=== PATIENT | male | born 1970 | race Caucasian/White ===

== ENCOUNTER 2016-08-23 22:21 | Observation (INO) | payer MEDICARE, MEDICAID ==
[~2016-08-23] VITALS: Ht 180.3 cm; Wt 94.2 kg
[2016-08-23 22:30] VITALS: BP 153/95; PULSE 83; RESP 20; O2SAT 98
[2016-08-23] MEDS ORDERED: Ondansetron 2 mg/mL 2 mL Inj IVPUSH ONE (22:45)
[2016-08-23] MEDS: HYDROmorphone 0.5 mg/0.5 mL iSecure Syringe IVPUSH PRN (22:56)
--- NOTE | 2016-08-23 23:04 | ED.REPORT ---
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 He states that the pain is diffuse, though it is significantly more severe around the umbilical area. Pain is exacerbated by eating and standing, and is relieved by not eating. As a result, he has not eaten in the past three days. Associated symptoms include an episode of vomiting earlier today, chills, diaphoresis, and insomnia secondary to pain. Patient admits to some flatulence today. Recent history of similar last month that resolved after he avoided food for several days. Nursing Notes Stated Complaint: ABDOMINAL PAIN Chief Complaint: Male Abdominal Pain Nursing Notes Reviewed: Yes ([employer] not reconciled) Allergies: Coded Allergies: Penicillins (Verified Allergy, Mild, 08/23/16) General Time Seen by MD: 22:36 Chief Complaint Abdominal pain Hx Obtained From: Patient Arrived By: Walk-in Sudden in Onset?: No Onset Occurred: 3 days ago Symptom Duration: Since onset Location: : Diffuse: Periumbilical Quality: Painful, Pressure Severity: Current: Moderate Severity: Maximum: Severe Associated with: Reports: Nausea, Vomiting, Denies: Diarrhea, Fever Pertinent Negative: Pt denies other symptoms Exacerbated by: Eating, Upright Context Related History: Reports: Abdominal surgery (Umbilical hernia repair) Similar Sx Previous: Yes Past Medical History Past Surgical History Umbilical hernia repair Smoking History Current Every Day Smoker Social History Other Social History: Good social support Ambulatory Status Independent Review of Systems Constitutional: Reports: Chills, Denies: Fever Respiratory: Denies: Non-productive cough GI: Reports: Abdominal pain, Nausea, Vomiting, Denies: Constipation, Diarrhea, Hematemesis, Hematochezia Complete sys rev & neg: except as marked. Skin: Reports Diaphoresis Psychiatric: Reports: Insomnia Physical Exam Vital Signs Vital Signs (First) Date Time Temp Pulse Resp B/P Pulse Ox O2 Delivery O2 Flow Rate FiO2 08/23/16 22:30 37.1 83 20 153/95 98 Room Air Initial VS: Reviewed, Vital signs normal Head / Eyes: Atraumatic, Normocephalic Neck: Supple, Non-tender, Full range of motion Extremities: Vascular intact, Neuro intact, No swelling, No tenderness Skin: Warm, Dry, No cyanosis Neurologic: Alert, Oriented, Nonfocal Psychiatric: Mood/affect normal, Behavior normal, Normal thought content General/Constitutional: Awake, Alert, Well developed, Well nourished Appearance / Presentation: Positive: In pain, Uncomfortable Respiratory / Chest: Breath sounds NL, Breath sounds = bilat, No respiratory distress, No rales, No rhonchi, No wheezing, No stridor Cardiovascular: Heart rate NL, Regular rhythm, Heart sounds NL, Peripheral circulation NL Abdomen: Soft, No guarding, No rebound, No distention, No hernia, No palpable mass Tenderness/Guarding/Rebound: Positive: Tender periumbilical (mild) Back: Inspection NL, Non-tender, No CVA tenderness Interpretation & Diagnostics Lab Results Interpretation Result Diagram: 08/23/16 2250 08/23/16 2252 Test 08/23/16 22:50 08/23/16 22:52 White Blood Count 13.4th/mm3 (3.8-10.1) Red Blood Count 5.18mil/mm3 (4.40-5.80) Hemoglobin 16.6g/dL (13.8-17.2) Hematocrit 48.5% (41.0-50.0) Mean Corpuscular Volume 93.6fL (81-100) Mean Corpuscular Hemoglobin 32.0pg (27.0-35.0) Mean Corpuscular Hemoglobin Concent 34.2% (32.0-37.0) Red Cell Distribution Width 12.9% (12.3-15.4) Platelet Count 227bil/L (150-400) Neutrophils (%) (Auto) 82.7% (40-74) Lymphocytes (%) (Auto) 11.0% (14-46) Monocytes (%) (Auto) 5.9% (4-12) Eosinophils (%) (Auto) 0.1% (0-5) Basophils (%) (Auto) 0.1% (0-3) Hold Kelly Top Tube Received (Received) Sodium Level 139mEq/L (134-144) Potassium Level 4.1mEq/L (3.5-5.2) Chloride Level 103mEq/L (97-108) Carbon Dioxide Level 23mmol/L (18-29) Blood Urea Nitrogen 12mg/dL (6-24) Creatinine 0.64mg/dL (0.76-1.27) Estimat Glomerular Filtration Rate 142mL/min (>59) Glucose Level 133mg/dL (60-99) Calcium Level 9.1mg/dL (8.5-10.1) Magnesium Level 2.1mg/dL (1.6-2.6) Total Bilirubin 0.6mg/dL (0.0-1.2) Aspartate Amino Transf (AST/SGOT) 11U/L (0-50) Alanine Aminotransferase (ALT/SGPT) 22U/L (0-44) Alkaline Phosphatase 70U/L (25-150) Total Protein 7.2g/dL (6.4-8.4) Albumin 4.1g/dL (3.4-5.0) Lipase 9U/L (13-60) Lab Results Interpretation: CBC, positive leukocytosis CMP normal Re-Eval/Medical Decision Med Decision/Clinical Course This is a 46-year-old males had a prior umbilical mesh hernia repair years ago he was out on the [place] and is developed about pain nausea vomiting with inability to take by mouth over the past few days. She reported possibly feculent vomiting earlier today. He has intermittent crampy pain, and was advised by his doctor when [place] ferry and [place] to be evaluated. Due to recurrent episodes of discomfort, is having intermittent problems with pain in the department. He appears fatigued, mildly dehydrated-but he does not appear toxic. He has only mild periumbilical tenderness on exam, but has periods of severe discomfort. Sounds appeared decreased. He does report minimal flatness however. I do not appreciate findings of her recurrent umbilical hernia or incarceration The patient is receiving IV fluids, medication prolapse been drawn, given his clinical presentation is highly concerning for the possibility of a bowel obstruction, imaging has been ordered and the patient's being turned over to Dr. Heck at change of shift Source of Hx: Old records Counseled Regarding: Diagnosis, Lab results Discharge & Departure Shift Change Sign-Out Patient Care Transferred: Yes Discussed Complaint(s): Yes Laboratory Evaluation: Done, results pending Imaging Studies: Ordered, not yet done Primary Impression: Abdominal pain Abdominal location: periumbilical Qualified Code: R10.33 - Periumbilical pain Additional Impression: Nausea & vomiting Vomiting type: unspecified Vomiting Intractability: unspecified Qualified Code: R11.2 - Nausea with vomiting, unspecified Discharge Condition All VS Reviewed: Yes Condition: Stable Care Transferred to: Dr. Heck Care Transferred at: 23:59 Sarbjit Attestation Portions of this note were transcribed by Shala Carter. I, Dr. Malin, personally performed the history, physical exam and medical decision-making; I reviewed and confirmed the accuracy of the information in the transcribed note. Signed by: Sarbjit Cason, 08/23/2016 and *time*. Errol Malin MD Aug 23, 2016 23:03 SHALA CARTER Aug 23, 2016 23:17
[2016-08-23 23:06] LABS: BASOPHILS % (AUTO) 0.1 % (0-3); EOSINOPHILS % (AUTO) 0.1 % (0-5); MONOCYTES % (AUTO) 5.9 % (4-12); Mean Corpuscular Volume 93.6 fL (81-100); NEUTROPHILS % (AUTO) 82.7 % (40-74); Platelet Count 227 bil/L (150-400)
[2016-08-23 23:33] LABS: Magnesium 2.1 mg/dL (1.6-2.6)
[2016-08-23] MEDS ORDERED: 0.9% Sodium Chloride 1,000 ML IV ONE (23:35)
[2016-08-24 00:05] LABS: APPEARANCE,URINE CLEAR (CLEAR,HAZY); COLOR,URINE DARK YELLOW (YELLOW); OCCULT BLOOD,URINE NEGATIVE (NEGATIVE); UROBILINOGEN,URINE NORMAL (NORMAL)
[2016-08-24] MEDS: HYDROmorphone 0.5 mg/0.5 mL iSecure Syringe IVPUSH PRN ×2 (00:05→01:38)
[2016-08-24] MEDS ORDERED: Ondansetron 2 mg/mL 2 mL Inj IVPUSH ONE (01:30)
[2016-08-24] MEDS ORDERED: Pantoprazole 4 mg/mL 10 mL Inj IVPUSH ONE ×2 (01:30→02:25)
[2016-08-24] MEDS ORDERED: Polyethylene Glycol (PEG) 17 Gm Powder PO PRN (01:50)
[2016-08-24] MEDS ORDERED: Ondansetron 2 mg/mL 2 mL Inj IVPUSH PRN (01:50)
[2016-08-24] MEDS ORDERED: Alum-Mag Hydrox-Simeth 30 mL Suspension PO PRN (01:50)
--- NOTE | 2016-08-24 02:00 | PCM.HPMED ---
Subjective Date of Service Aug 24, 2016 Primary Provider: Admitting Physician: Mireya Leger DO Primary Care Physician: Haleigh Attending Physician: Mireya Leger DO Admit Status: From the Emergency Department, 23-Hour Observation Chief Complaint: Abdominal pain History of Present Illness: Patient is a 46 year old male with a history of umbilical hernia repair 10 years ago, who presents to the ER with three days of severe cramping abdominal pain. He states that the pain currently 8/10, is diffuse, and can be sharp and cramping. Starts at laterally and moves in medially, significantly more severe around the umbilical area. Pain is exacerbated by eating and standing, and is relieved by not eating. As a result, he has not eaten in the past three days. Associated symptoms include an episode of vomiting earlier today, chills, diaphoresis, and insomnia secondary to pain. Patient had two bowel movements today, first one being small, dry and hard, second one with very loose with orange tinge to stool. Patient admits to some flatulence today. Patient reports of similar incident last month, that resolved after he avoided food for several days. Last meal was fish and chips which his girlfriend also had, and has not become sick from. Patient denies any family history of IBD or colon cancer. No recent travel history or antibiotic use. Has never had coloscopy. Patient lives on [facility] and was told to catch the last ferry by a doctor he called into , since his symptoms were concerning. In the ED, vitals T 37.1, P82, RR20, BP153/95, 98% on RA. Labs significant for WBC 13.4. CT abd showed "Nonspecific enteritis affecting much of the distal small bowel in the abdomen or pelvis and suggestive of inflammatory bowel disease or possibly infectious enteritis. No perforation or abscess. There is associated free fluid." Patient is admitted for further observation and management. Review of Systems: All ROS reviewed and negative otherwise noted in HPI. Allergies Coded Allergies: Penicillins (Verified Allergy, Mild, 08/23/16) Home Medications Flexeril no known dosage PRN for neck pain PMH chronic neck pain umbilical hernia Surgical History umbilical hernia repair with mesh 2006 in [place] cervical plate from construction injury Family History Father with ID x2, first one in his 50s Father with mesothelioma Social History Occupation: disabled Hx Alcohol Use: Yes Alcoholic Drinks Per Day: occasional drinker Hx Substance Use: No Hx Tobacco Use: Yes Smoking Status: Current Every Day Smoker (4 cigs a day) Years of Smokin Exam Vital Signs Vital Sign - Last Date Time Temp Pulse Resp B/P Pulse Ox O2 Delivery O2 Flow Rate FiO2 08/23/16 22:30 37.1 83 20 153/95 98 Room Air Intake and Output 08/23/16 08/23/16 08/24/16 Cumulative From/Thru 15:00 23:00 07:00 08/23/16 22:30 - 08/23/16 23:40 Intake Total 1000 ml 1000 ml Balance 1000 ml 1000 ml Intake IV Total 1000 ml 1000 ml Exam GEN: Well developed, well nourished male in mild distress. Non-toxic appearing HEENT: NC/AT, PERRL, EOMI, sclera anicteric, moist mucous membranes Neck: Supple with full ROM CV: RRR, normal S1, S2, no murmurs, rubs or gallops Lungs: CTAB Abd: tenderness to palpation at RUQ, LLQ, and jordan umbilicus Skin: Warm, dry and intact, well healed periumbilical skin changes with small nodule felt above umbilicus Ext: no edema, cyanosis or clubbing Neuro: CN II-XII grossly intact, normal speech Psych: normal mood and affect Lab and Diagnostics Result Diagram: 08/23/16224908/23/162251 X-Rays, CTs and MRIs CT Abdomen and Pelvis: CONCLUSION: Nonspecific enteritis affecting much of the distal small bowel in the abdomen or pelvis and suggestive of inflammatory bowel disease or possibly infectious enteritis. No perforation or abscess. There is associated free fluid. Wall thickening of the bladder is suggested. Correlate for cystitis or chronic change. Cholelithiasis is noted. Ultrasound could further evaluate. Peripheral wedge-shaped area of increased attenuation may represent transient hyperattenuating defect of the liver. Assessment & Plan Patient is a 46 year old male with a history of umbilical hernia repair 10 years ago, who presents to the ER with three days of severe cramping abdominal pain. He states that the pain is diffuse, starts at laterally and moves in medially, significantly more severe around the umbilical area. Abdominal pain, present on admission. Acute. - CT abd/pelv showed "Nonspecific enteritis affecting much of the distal small bowel in the abdomen or pelvis and suggestive of inflammatory bowel disease or possibly infectious enteritis. No perforation or abscess. There is associated free fluid. Wall thickening of the bladder is suggested. Correlate for cystitis or chronic change. Cholelithiasis is noted. Ultrasound could further evaluate. Peripheral wedge-shaped area of increased attenuation may represent transient hyperattenuating defect of the liver. - patient's abdominal pain most likely due to infectious etiology, cannot rule out IBD - stool PCR and WBC, ova and parasites, guaiac, UCx, celiac panel, ESR, CRP, troponin pending - consider colonoscopy is symptoms do not improve with conservative care - patient to follow up as outpatient on incidental findings on CT Leukocytosis, present on admission. Acute. - most likely due to infectious enteritis - will repeat CBC in am Hypertension, present on admission. Acute. - most likely due to pain - consider starting on blood pressure medications if consistently elevated Hyperglycemia, present on admission. Acute. - no hx of diabetes - will check HgbA1c Hx of abdominal hernia repair DVT: Enoxaparin GI: PPI CODE: FULL Patient admitted as observation status with anticipated discharge <2 midnights. Pain Evaluation: Pain not Controlled GI Prophylaxis: Proton Pump Inhibitor VTE Prophylaxis: Sub-Q Enoxaparin Resuscitation Status: CPR: Attempt Resuscitation Attending Statement The patient was seen and examined together with house staff on 08/24/2016 and I agree with the history, exam and plan as outlined in the note above. Melania Dalton DO Aug 24, 2016 01:24 Mireya Leger DO Aug 24, 2016 03:44
[2016-08-24 02:07] VITALS: BP 124/67; PULSE 82; RESP 16; O2SAT 97
[2016-08-24 02:15] VITALS: BP 143/87; PULSE 79; RESP 18; O2SAT 98
--- NOTE | 2016-08-24 02:30 | NUR ---
Arrival on Unit Pt arrives to unit at 0205. Pt is A&Ox4, ambulating, no SOB/Cardiac distress. No N/V at this time. Pt is aware his status is NPO and has been informed the risks of aspiration and necessity for NPO prior to surgery- he has requested sips of water to help with hiccoughs/heartburn. NS infusing at L AC. Will continue cares
[2016-08-24] MEDS: 0.9% Sodium Chloride 1,000 ML IV SCH ×3 (03:16→23:50)
[2016-08-24 06:37] LABS: BASOPHILS % (AUTO) 0.2 % (0-3); EOSINOPHILS % (AUTO) 1.1 % (0-5); MONOCYTES % (AUTO) 8.4 % (4-12); Mean Corpuscular Hemoglobin 32.1 pg (27.0-35.0); Mean Corpuscular Volume 95.3 fL (81-100); NEUTROPHILS % (AUTO) 70.8 % (40-74); Platelet Count 199 bil/L (150-400)
[2016-08-24] MEDS: HYDROmorphone 1 mg/mL Inj IVPUSH PRN ×3 (08:57→20:36)
[2016-08-24 09:05] VITALS: BP 137/76; PULSE 83; RESP 16; O2SAT 95
--- NOTE | 2016-08-24 09:17 | DRSVH ---
PROCEDURE: CT ABDOMEN AND PELVIS WITH CONTRAST ([id number]) INDICATIONS: ABd pain TECHNIQUE: After the administration of intravenous contrast, 5 mm thick sections acquired from the diaphragm to the symphysis. 5 mm coronal and sagittal reformats were acquired. For radiation dose reduction, the following was used: automated exposure control, adjustment of mA and/or kV according to patient siz e. COMPARISON: None. FINDINGS: Image quality: Excellent. ABDOMEN: Lung bases: Lung bases are clear. Heart size is normal. Solid organs: Liver and spleen are normal in size and enhancement. Gallbladder contains a partially calcified gallstone.. Biliary system is non dilated. Pancreas enhances normally. No adrenal nodul es. Kidneys demonstrate normal size and enhancement, without hydronephrosis. Peritoneum and bowel: Circumferential wall thickening noted in multiple loops of ileum including the terminal ileum. Mild stranding and vascular prominence is noted in the mesentery adjacent to the area s of wall thickening involving the ileum. Small amount of free fluid is noted. No pneumatosis. No fátima e air. The appendix is mildly enlarged measuring up to 9 mm in diameter. Findings could be related to acute appendicitis versus secondary reactive change associated with adjacent enteritis. Nodes and vessels: No retroperitoneal or mesenteric adenopathy by size criteria. Aorta and inferior vena cava are normal in size. Miscellaneous: No ventral hernias. PELVIS: Genitourinary: Marked, circumferential wall thickening noted in the urinary bladder. Urinary bladder wall is thickened up to 1.5 cm. Miscellaneous: No inguinal hernias or adenopathy. Bones: No suspicious bony lesions. No vertebral body compression fractures. IMPRESSION: 1. Findings compatible with nonspecific ileitis. Differential diagnosis includes inflammatory bowel d isease, infectious etiologies and less likely ischemic or neoplastic etiologies. 2. Urinary bladder wall thickening which could be infectious/inflammatory or neoplastic. Recommend co rrelation with urinalysis data and urology consultation. 3. Cholelithiasis. 4. Mild enlargement of the appendix likely representing secondary reactive change related to adjacent enteritis, however finding is nonspecific an early appendicitis cannot be completely excluded by estepahnie ging alone. Recommend correlation with clinical findings. Dictated by: Joleen Velazquez MD, PhD on 08/24/2016 at 9:05 Approved by: Joleen Velazquez MD, PhD on 08/24/2016 at 9:16
[2016-08-24 11:44] VITALS: BP 113/73; PULSE 73; RESP 16; O2SAT 98
[2016-08-24] MEDS ORDERED: TRAMADOL (16:19)
[2016-08-24] MEDS ORDERED: RANI150C4 PO (16:19)
[2016-08-24] MEDS ORDERED: HYDROCODONE/APAP (16:19)
[2016-08-24] MEDS ORDERED: CYCL5TAB PO (16:19)
[2016-08-24] MEDS ORDERED: TRAM50TA2 PO (16:29)
[2016-08-24] MEDS ORDERED: HYDR-4003 PO (16:29)
[2016-08-24 16:32] VITALS: BP 131/80; PULSE 74; RESP 16; O2SAT 94
--- NOTE | 2016-08-24 16:32 | NUR ---
MED REC Information was obtained from patients medication container and verified with [facility] in [place], [place]. Per pharmacy his meds were last filled in 2014 and per patient he last took his meds 3 weeks/1 month ago and ran out of it. Dr. Cid made aware RE: Med rec.
--- NOTE | 2016-08-24 17:26 | NUR ---
DIET/ACTIVITY Patient rated his pain over his abdomen as 8-9/10. Dilaudid 1 mg IVP administered, which was effective. Patient rated his pain as 6/10 after his pain medication. Diet was advanced to clears, which he is tolerating well. Denies nausea. No emesis noted. Denies SOB. Patient has been ambulating independently in the room. Gait is steady. Tolerated activity well. Stool sample sent to the lab. Per Micro another stool specimen is needed. Patient was made aware of this.
[2016-08-24 20:59] VITALS: BP 119/80; PULSE 54; RESP 20; O2SAT 98
[2016-08-25 05:05] VITALS: BP 106/64; PULSE 69; RESP 20; O2SAT 97
--- NOTE | 2016-08-25 06:42 | NUR ---
GI Pt continues of Abd pain x 1 during this shift. Pain subsided with Dilaudid x 1. Tolerating Fl diet well. VSS. No overt complications noted.
[2016-08-25] MEDS: 0.9% Sodium Chloride 1,000 ML IV SCH ×2 (09:15→17:17)
--- NOTE | 2016-08-25 09:27 | PCM.PNMED ---
Subjective Date of Service Aug 25, 2016 Subjective - Pt seen and examined this morning. - c/o mild left lower quadrant abdominal pain. Denies any more episodes of vomiting. Exam Vital Signs Vital Sign - Last Date Time Temp Pulse Resp B/P Pulse Ox O2 Delivery O2 Flow Rate FiO2 08/25/16 05:05 36.9 69 20 106/64 97 Room Air Intake and Output 08/24/16 08/24/16 08/25/16 Cumulative From/Thru 15:00 23:00 07:00 08/23/16 22:30 - 08/25/16 03:05 Intake Total 1351 ml 2351 ml Output Total 600 ml 600 ml Balance 751 ml 1751 ml Intake Oral 318 ml 318 ml IV Total 1033 ml 2033 ml Output Urine Total 600 ml 600 ml # Bowel Movements 1 1 Exam GEN: Well developed, well nourished male in mild distress. Non-toxic appearing HEENT: NC/AT, PERRL, EOMI, sclera anicteric, moist mucous membranes Neck: Supple with full ROM CV: RRR, normal S1, S2, no murmurs, rubs or gallops Lungs: CTAB Abd: tenderness to palpation at LLQ, and jordan umbilicus Skin: Warm, dry and intact, well healed periumbilical skin changes with small nodule felt above umbilicus Ext: no edema, cyanosis or clubbing Neuro: CN II-XII grossly intact, normal speech Psych: normal mood and affect Lab and Diagnostics Result Diagram: 08/24/16 0600 08/24/16 0600 X-Rays, CTs and MRIs CT Abdomen and Pelvis: CONCLUSION: Nonspecific enteritis affecting much of the distal small bowel in the abdomen or pelvis and suggestive of inflammatory bowel disease or possibly infectious enteritis. No perforation or abscess. There is associated free fluid. Wall thickening of the bladder is suggested. Correlate for cystitis or chronic change. Cholelithiasis is noted. Ultrasound could further evaluate. Peripheral wedge-shaped area of increased attenuation may represent transient hyperattenuating defect of the liver. Assessment & Plan 46 year old male with a history of umbilical hernia repair 10 years ago, who presents to the ER with three days of severe cramping abdominal pain. He states that the pain is diffuse, starts at laterally and moves in medially, significantly more severe around the umbilical area. Abdominal pain, present on admission. Acute. - CT abd/pelv showed "Nonspecific enteritis affecting much of the distal small bowel in the abdomen or pelvis and suggestive of inflammatory bowel disease or possibly infectious enteritis. No perforation or abscess. There is associated free fluid. Wall thickening of the bladder is suggested. Correlate for cystitis or chronic change. Cholelithiasis is noted. Ultrasound could further evaluate. Peripheral wedge-shaped area of increased attenuation may represent transient hyperattenuating defect of the liver. - patient's abdominal pain most likely due to infectious etiology, cannot rule out IBD - Stool culture is negative - patient to follow up as outpatient on incidental findings on CT - Will advance diet to full liquid. If tolerates well, will further advance to soft diet later in the day. Leukocytosis, present on admission. Acute. - Now resolved - WBC: 9.9 <-- 13.4 Hypertension, present on admission. Acute. - most likely due to pain - Improved Hyperglycemia, present on admission. Acute. - no hx of diabetes - A1c: 5.8 Hx of abdominal hernia repair DVT: Enoxaparin GI: PPI CODE: FULL Dispo: Likely discharge tomorrow. GI Prophylaxis: Proton Pump Inhibitor VTE Prophylaxis: Sub-Q Enoxaparin Resuscitation Status: CPR: Attempt Resuscitation Nitin Daugherty MD Aug 25, 2016 09:27
[2016-08-25 09:46] VITALS: BP 129/73; PULSE 73; RESP 18; O2SAT 95
[2016-08-25] MEDS: HYDROcodone-APAP 5-325 mg Tablet PO PRN ×3 (12:08→21:04)
--- NOTE | 2016-08-25 12:46 | NUR ---
Tingling Pt has c/o tingling on back and upper chest with numbness in left toes. 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 Pt has history of DJD, so advised pt to get OOB and sit in chair and increase walking today to see if that helps. Also called to see if a foam bed was available, but there are none at this time. Rod ROBBINS and he advised to watch and notify if any weakness or other s/s develop. Addendum: 08/25/16 at 1832 by TALIA HURST RN Symptoms resolved and pt had no further episodes.
--- NOTE | 2016-08-25 13:56 | NUR ---
Social Work: Initial Assessment Data & Assessment: EMR Reviewed. See Initial Assessment. Patient is a 46 y/o male that admitted due to Enteritis. Liner Worker met with patient at bedside to complete initial assessment, discuss discharge planning, and SW role reviewed. Patient alert and oriented X3. Patient does not have a readmit score. patient does not have a PCP. Patient NOK is Nedra Hernandez [phone] his significant other. Patient does not have VA or LTC benefit. Patient is independent at baseline and drives. Patient lives in a 2 story home with his S/O. There is four steps to enter the home and approximately fourteen steps on the inside. Patient does not have any DME and no HH history. Patient will likely discharge home with no needs from social work when medically ready. SW will continue to follow. Plan: Patient will likely discharge home with no needs from social work when medically ready. SW will continue to follow. Cecy Queen LMSW, ESTEFANÍA Addendum: 08/25/16 at 1408 by CECY QUEEN Amended: Links added.
[2016-08-25 16:22] VITALS: BP 124/79; PULSE 63; RESP 18; O2SAT 97
--- NOTE | 2016-08-25 18:32 | NUR ---
Activity Pt pain remained consistent over shift, but was easily controlled with PO medications, pt has baseline neck/back pain and states "I'm always at 6". Able to advance diet from clear liquids to soft diet w/o c/o increased abdominal discomfort or N/V. Pt had one small BM and sample send to lab for O&P. Pt's IV infiltrated and IV therapy unable to get new IV after 5 sticks. MD aware and okay with pt not having IV since plan is probable discharge tomorrow.
[2016-08-25 20:01] VITALS: BP 135/85; PULSE 67; RESP 18; O2SAT 98
[2016-08-26] MEDS: 0.9% Sodium Chloride 1,000 ML IV SCH (01:08)
--- NOTE | 2016-08-26 01:26 | NUR ---
PAIN; pain pills effective for abd pain. Up independently in room and hallway.
[2016-08-26] MEDS: HYDROcodone-APAP 5-325 mg Tablet PO PRN ×3 (01:33→10:59)
[2016-08-26 06:05] VITALS: BP 129/77; PULSE 70; RESP 19; O2SAT 96
--- NOTE | 2016-08-26 08:32 | PCM.DIMED ---
Discharge Instructions Date of Service Aug 26, 2016 Dates of Hospitalization Aug 24, 2016 at 00:51 Discharge Diagnosis Discharge Diagnosis - Npn-specific enteritis. Call your provider Fever or Chills, Shortness of breath, Bleeding, Chest pain, Vomitting, Excessive diarrhea, Weakness (unilateral) Patient Instructions Follow-up with PCP in: 2 weeks Nitin Daugherty MD Aug 26, 2016 08:32
--- NOTE | 2016-08-26 08:39 | PCM.DC.MED ---
Discharge Summary Date of Service Aug 26, 2016 Dates of Hospitalization Date of Hospital Admission Aug 24, 2016 at 00:51 Date of Discharge: Aug 26, 2016 Providers: Admitting Physician: Mireya Leger DO Primary Care Physician: Haleigh Attending Physician: Mireya Leger DO Diagnosis at Time of Discharge Diagnosis at Time of Discharge - Npn-specific enteritis. Procedures XRay, CTs & MRIs CT Abdomen and Pelvis: CONCLUSION: Nonspecific enteritis affecting much of the distal small bowel in the abdomen or pelvis and suggestive of inflammatory bowel disease or possibly infectious enteritis. No perforation or abscess. There is associated free fluid. Wall thickening of the bladder is suggested. Correlate for cystitis or chronic change. Cholelithiasis is noted. Ultrasound could further evaluate. Peripheral wedge-shaped area of increased attenuation may represent transient hyperattenuating defect of the liver. Brief History As per admitting physician: "Patient is a 46 year old male with a history of umbilical hernia repair 10 years ago, who presents to the ER with three days of severe cramping abdominal pain. He states that the pain currently 8/10, is diffuse, and can be sharp and cramping. Starts at laterally and moves in medially, significantly more severe around the umbilical area. Pain is exacerbated by eating and standing, and is relieved by not eating. As a result, he has not eaten in the past three days. Associated symptoms include an episode of vomiting earlier today, chills, diaphoresis, and insomnia secondary to pain. Patient had two bowel movements today, first one being small, dry and hard, second one with very loose with orange tinge to stool. Patient admits to some flatulence today. Patient reports of similar incident last month, that resolved after he avoided food for several days. Last meal was fish and chips which his girlfriend also had, and has not become sick from. Patient denies any family history of IBD or colon cancer. No recent travel history or antibiotic use. Has never had coloscopy. Patient lives on [facility] and was told to catch the last ferry by a doctor he called into , since his symptoms were concerning. In the ED, vitals T 37.1, P82, RR20, BP153/95, 98% on RA. Labs significant for WBC 13.4. CT abd showed "Nonspecific enteritis affecting much of the distal small bowel in the abdomen or pelvis and suggestive of inflammatory bowel disease or possibly infectious enteritis. No perforation or abscess. There is associated free fluid." Patient is admitted for further observation and management." Hospital Course 46 year old male with a history of umbilical hernia repair 10 years ago, who presents to the ER with three days of severe cramping abdominal pain. He states that the pain is diffuse, starts at laterally and moves in medially, significantly more severe around the umbilical area. Abdominal pain, present on admission. Acute. - CT abd/pelv showed "Nonspecific enteritis affecting much of the distal small bowel in the abdomen or pelvis and suggestive of inflammatory bowel disease or possibly infectious enteritis. No perforation or abscess. There is associated free fluid. Wall thickening of the bladder is suggested. Correlate for cystitis or chronic change. Cholelithiasis is noted. Ultrasound could further evaluate. Peripheral wedge-shaped area of increased attenuation may represent transient hyperattenuating defect of the liver. - patient's abdominal pain most likely due to infectious etiology, cannot rule out IBD - Stool culture is negative - patient to follow up as outpatient on incidental findings on CT - He was kept NPO initially and diet was advanced gradually. He tolerated it well and stable on the day of discharge. Leukocytosis, present on admission. Acute. - resolved - WBC: 9.9 <-- 13.4 Hypertension, present on admission. Acute. - most likely due to pain - Improved Hyperglycemia, present on admission. Acute. - no hx of diabetes - A1c: 5.8 Hx of abdominal hernia repair DVT: Enoxaparin GI: PPI CODE: FULL Exam Vital Signs (Last) Date Time Temp Pulse Resp B/P Pulse Ox O2 Delivery O2 Flow Rate FiO2 08/26/16 06:05 36.7 70 19 129/77 96 Room Air Exam GEN: Well developed, well nourished male in mild distress. Non-toxic appearing HEENT: NC/AT, PERRL, EOMI, sclera anicteric, moist mucous membranes Neck: Supple with full ROM CV: RRR, normal S1, S2, no murmurs, rubs or gallops Lungs: CTAB Abd: soft, non tender, non distended, BS +nt Skin: Warm, dry and intact, well healed periumbilical skin changes with small nodule felt above umbilicus Ext: no edema, cyanosis or clubbing Neuro: CN II-XII grossly intact, normal speech Psych: normal mood and affect Test 08/23/16 22:50 08/23/16 22:52 08/23/16 23:46 08/24/16 06:00 Erythrocyte Sedimentation Rate 5mm/hr (0-15) C-Reactive Protein 8.2mg/dL (0.0-0.5) Hold Kelly Top Tube Received (Received) Magnesium Level 2.1mg/dL (1.6-2.6) Total Bilirubin 0.6mg/dL (0.0-1.2) Aspartate Amino Transf (AST/SGOT) 11U/L (0-50) Alanine Aminotransferase (ALT/SGPT) 22U/L (0-44) Alkaline Phosphatase 70U/L (25-150) Total Protein 7.2g/dL (6.4-8.4) Albumin 4.1g/dL (3.4-5.0) Lipase 9U/L (13-60) Urine Color Dark yellow (YELLOW) Urine Appearance Clear (CLEAR,HAZY) Urine pH 6.0 (5.0-8.0) Urine Specific [place] 1.025 (1.003-1.035) Urine Protein Negativemg/dL (NEG,TRACE) Urine Glucose (UA) Negativemg/dL (NEGATIVE) Urine Ketones Tracemg/dL (NEGATIVE) Urine Occult Blood Negative (NEGATIVE) Urine Nitrite Negative (NEGATIVE) Urine Bilirubin Negative (NEGATIVE) Urine Urobilinogen Normalmg/dL (NORMAL) Urine Leukocyte Esterase Negative (NEGATIVE) Urine RBC 0-2/hpf (0-2) Urine WBC 6-10/hpf (0-5) Urine Epithelial Cells Many/hpf (NONE-MOD) Urine Crystals None seen (NONE SEEN) Urine Bacteria None/hpf (NONE-FEW) Urine Hyaline Casts None/lpf (NONE) Urine Granular Casts None seen (NONE SEEN) Urine Waxy Casts None seen (NONE SEEN) Urine Red Blood Cell Casts None seen (NONE SEEN) Urine White Blood Cell Casts None seen (NONE SEEN) Urine Mucus Present (None Seen) Urine Trichomonas None seen (NONE SEEN) Urine Yeast None (NONE SEEN) Urine Culture Reflexed Indicated White Blood Count 9.9th/mm3 (3.8-10.1) Red Blood Count 4.43mil/mm3 (4.40-5.80) Hemoglobin 14.2g/dL (13.8-17.2) Hematocrit 42.2% (41.0-50.0) Mean Corpuscular Volume 95.3fL (81-100) Mean Corpuscular Hemoglobin 32.1pg (27.0-35.0) Mean Corpuscular Hemoglobin Concent 33.6% (32.0-37.0) Red Cell Distribution Width 12.8% (12.3-15.4) Platelet Count 199bil/L (150-400) Neutrophils (%) (Auto) 70.8% (40-74) Lymphocytes (%) (Auto) 19.3% (14-46) Monocytes (%) (Auto) 8.4% (4-12) Eosinophils (%) (Auto) 1.1% (0-5) Basophils (%) (Auto) 0.2% (0-3) Sodium Level 143mEq/L (134-144) Potassium Level 4.2mEq/L (3.5-5.2) Chloride Level 105mEq/L (97-108) Carbon Dioxide Level 27mmol/L (18-29) Blood Urea Nitrogen 11mg/dL (6-24) Creatinine 0.72mg/dL (0.76-1.27) Estimat Glomerular Filtration Rate 124mL/min (>59) Glucose Level 108mg/dL (60-99) Hemoglobin A1c 5.8% (4.8-5.6) Calcium Level 8.6mg/dL (8.5-10.1) Test 08/24/16 15:02 Troponin T < 0.010ug/L (0.0-0.011) Discharge Medications Discharge Medications Ranitidine (Ranitidine) 150 Mg Capsule 150 MG PO DAILY (Reported) As needed Cyclobenzaprine (Cyclobenzaprine) 5 Mg Tablet 5-10 MG PO Q12 PRN PRN Spasm ( Reported) Hydrocodone-Acetaminophen 5-325 mg (Hydrocodone-Acetaminophen 5-325 mg) 1 Each Tablet 1 TABLET PO Q4-6 HRS. PRN PRN For Pain (Reported) Tramadol (Tramadol) 50 Mg Tablet 50 MG PO Q6 HRS. PRN PRN For Pain (Reported) Followup Plan Follow-up with PCP in: 2 weeks Nitin Daugherty MD Aug 26, 2016 08:39
--- NOTE | 2016-08-26 10:10 | NUR ---
Discharge Data: Pt is on day 2 of hospitalization. EMR reviewed. D/C orders are in. No d/c planning needs at this time. 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 Assessment: Pt who is independent at baseline. Plan: Pt will d/c home via POV today. No d/c planning needs at this time. 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 FARHANA James
--- NOTE | 2016-08-26 11:38 | NUR ---
Discharge Pt off unit at 1110 with friend in private vehicle. Pt has discharge instructions, care notes. No new rx's given. Pt has kassi pass. VSS, RUIZ, A&O x 3. No IV, was infiltrated yesterday. Pt had c/o 02/28 so medication given prior to discharge. Pt has all belongings and all questions answered.
== END 2016-08-26 11:14 | disposition home or self-care (01) ==
LOC: SED 22:21 → OSC 08-24 00:51
PROVIDERS: ADMIT Internal Medicine; ATTEND Internal Medicine
DX: K52.9 Noninfective gastroenteritis and colitis, unspecified (principal); D72.829 Elevated white blood cell count, unspecified; I10 Essential (primary) hypertension; R73.9 Hyperglycemia, unspecified; F17.210 Nicotine dependence, cigarettes, uncomplicated
CPT/HCPCS: 36415; 74177; 80048; 80053; 81000; 82274; 82784; 83036; 83516; 83520; 83690; 83735; 84484; 85025; 85651; 86140; 87086; 87507; 89055; 96361; 96374; 96375; 96376; 99285; G0378; J1170; J1650; J2405; J7030; Q9967